=== PATIENT | female | born 1950 | race Caucasian/White ===

== ENCOUNTER → 2018-03-15 | Outpatient (CLI) | payer MEDICARE, OTHER ==
[~2018-03-15] MED LIST: ACET325; ACET500; ACET500 PO; CALCAVITD PO; Citrucel500 MG PO; DULO30 PO; FLUV80CR PO; HYDACE5 PO; HYDCHL25 PO; HYDR1TAB94; HYDR1TAB94 PO; IBUP200; LEVFLO500 PO; LISI5 PO; LUTEIN6 MG; METO25ER PO; METRIBP; OMEG1CAP30 PO; OMEGA RED PO; OMEP20ER; PHENA200 PO; RXPHEN200 PO; RXPROM25 PO; TRAM50 PO
[2018-03-15 14:36] LABS: Protein, Urine Quantitative 8.4 mg/dL (0.0-11.9)
[2018-03-15 14:41] LABS: Calcium, Urine <5.0 mg/dL (2.0-17.5); Calcium, Urine Calculation Unable to Calculate mg/24hrs (42.0-353.0)
[2018-03-15 14:42] LABS: Microalbumin, Urine Quant. <5.000 mg/L (0.000-20.000); Sodium, Urine 58 mmol/L (20-110)
== END | disposition home or self-care (01) ==
LOC: LAB EV 07:00
PROVIDERS: Internal Medicine Nephrology
DX: N18.3 Chronic kidney disease, stage 3 (moderate) (principal); D63.1 Anemia in chronic kidney disease; N25.81 Secondary hyperparathyroidism of renal origin; E55.9 Vitamin D deficiency, unspecified; E78.00 Pure hypercholesterolemia, unspecified
CPT/HCPCS: 81050; 82043; 82340; 82570; 84156; 84300

== ENCOUNTER → 2019-04-23 | Outpatient (CLI) | payer MEDICARE, OTHER | END | disposition home or self-care (01) | LOC: LAB EV 08:16 → LAB SHORT 08:16 | DX: M79.671 Pain in right foot (principal) | CPT/HCPCS: 84550 ==

== ENCOUNTER 2020-07-07 07:57 | Day surgery (SDC) | payer MEDICARE, OTHER ==
[~2020-07-07] VITALS: Ht 157.5 cm; Wt 96.8 kg
[~2020-07-07 07:57] MED LIST changes: +Prinivil10 MG PO
--- NOTE | 2020-07-07 09:04 | NUR ---
07/07/20 0904 [facility] 0850- DR VIEIRA PERFORMED TIME OUT PRIOR TO INTERSCALENE BLOCK. PT TOLERATED PROCEDURE WELL AND O2 SATS REMAINED STABLE
--- NOTE | 2020-07-07 09:43 | NUR ---
07/07/20 0943 Anderson Correia 1MG EPINEPHRINE ADDED TO FIRST 3 BAGS OF 3000ML LACTATED RINGER'S SOLUTION FOR A TOTAL OF 3MG EPI PER DR AVILA'S ORDERS.
--- NOTE | 2020-07-07 12:31 | NUR ---
07/07/20 1231 TIMOTHY VALLE PT TO STEP DOWN VIA BED. SBA TO RECLINER. PT TOLERATING SIPS OF WATER. VSS HOWEVER, O2 SATS OCCASIONALLY DROP TO 89-91%. BLOW BY O2 VIA NON-REBREATHER TO MAINTAIN O2 SATS 92% AND HIGHER. BP HYPOTENSIVE BUT MAINTAINING SYSTOLIC GREATER THAN 90. PT THEN TRENDED UPWARD AND WAS MAINTAINING O2 SATS 94% OR GREATER ON ROOM AIR. PT ENGAGED IN DC TEACHING AND EDUCATED ON USE OF ICENTIVE SPIROMETER. ALL QUESTIONS ASKED AND ANSWERED. PT DC VIA
== END 2020-07-07 11:44 | disposition home or self-care (01) ==
LOC: ORSCSDS 07:57
PROVIDERS: Orthopaedic Surgery
PROC: 0LQ14ZZ Repair Right Shoulder Tendon, Percutaneous Endoscopic Approach (ICD-10-PCS; principal; 2020-07-07 09:30)
PROC: 0RNJ4ZZ Release Right Shoulder Joint, Percutaneous Endoscopic Approach (ICD-10-PCS; principal; 2020-07-07 09:30)
DX: M75.121 Complete rotator cuff tear or rupture of right shoulder, not specified as traumatic (principal); M75.21 Bicipital tendinitis, right shoulder; M75.41 Impingement syndrome of right shoulder; I10 Essential (primary) hypertension; K21.9 Gastro-esophageal reflux disease without esophagitis; N18.9 Chronic kidney disease, unspecified; E66.01 Morbid (severe) obesity due to excess calories; Z68.39 Body mass index [BMI] 39.0-39.9, adult; Z79.899 Other long term (current) drug therapy
CPT/HCPCS: C1713; J0171; J0690; J1100; J2250; J2370; J2405; J2704; J2710; J3010; J7030

== ENCOUNTER → 2022-10-11 | Outpatient (CLI) | payer MEDICARE, OTHER ==
[2022-10-11 15:59] LABS: U Amphetamine Screen Not Detected; U Barbituate Screen Not Detected; U Benzodiazapine Screen Not Detected; U Methamphetamine Screen Not Detected; U Opiates Screen DETECTED
[2022-10-11 16:00] LABS: U Buprenorphine Screen Not Detected; U Cannabinoids Screen Not Detected; U Cocaine Screen Not Detected; U Methadone Screen Not Detected; U Oxycodone Screen Not Detected; U Phencyclidine Screen Not Detected; U Propoxyphene Screen Not Detected
== END | disposition home or self-care (01) ==
LOC: LAB 11:45 → LAB SHORT 11:45
PROVIDERS: Family Medicine
DX: Z51.81 Encounter for therapeutic drug level monitoring (principal); Z79.891 Long term (current) use of opiate analgesic

== ENCOUNTER → 2023-01-27 | Outpatient (CLI) | payer MEDICARE, OTHER | LOC: LAB SHORT 12:50 → LAB 12:50 | DX: R30.0 Dysuria (principal) | CPT/HCPCS: 87086 ==

== ENCOUNTER → 2023-02-14 | Outpatient (CLI) | payer MEDICARE, OTHER | END | disposition home or self-care (01) | LOC: LAB 15:30 → LAB SHORT 15:30 | DX: R82.90 Unspecified abnormal findings in urine (principal) | CPT/HCPCS: 87086 ==

== ENCOUNTER → 2023-05-18 | Outpatient (CLI) | payer MEDICARE, OTHER ==
[2023-05-18 16:46] LABS: U Amphetamine Screen Not Detected; U Barbituate Screen Not Detected; U Benzodiazapine Screen Not Detected; U Buprenorphine Screen Not Detected; U Cannabinoids Screen Not Detected; U Cocaine Screen Not Detected; U Methadone Screen Not Detected; U Methamphetamine Screen Not Detected; U Opiates Screen DETECTED; U Oxycodone Screen Not Detected; U Phencyclidine Screen Not Detected
== END ==
LOC: LAB 15:27 → LAB SHORT 15:27
PROVIDERS: Family Medicine
DX: Z79.891 Long term (current) use of opiate analgesic (principal)

== ENCOUNTER → 2023-11-23 | Outpatient (CLI) | payer MEDICARE, OTHER ==
[2023-11-24 19:18] LABS: U Amphetamine Screen Not Detected; U Barbituate Screen Not Detected; U Benzodiazapine Screen Not Detected; U Buprenorphine Screen Not Detected; U Cannabinoids Screen Not Detected; U Cocaine Screen Not Detected; U Methadone Screen Not Detected; U Methamphetamine Screen Not Detected; U Opiates Screen DETECTED; U Oxycodone Screen Not Detected; U Phencyclidine Screen Not Detected
== END ==
LOC: LAB SHORT 16:45 → LAB 16:45
PROVIDERS: Family Medicine
DX: Z51.81 Encounter for therapeutic drug level monitoring (principal); Z79.899 Other long term (current) drug therapy

== ENCOUNTER → 2024-08-27 | Outpatient (CLI) | payer MEDICARE, OTHER ==
[2024-08-27 16:41] LABS: U Amphetamine Screen Not Detected; U Barbituate Screen Not Detected; U Benzodiazapine Screen Not Detected; U Buprenorphine Screen Not Detected; U Cannabinoids Screen Not Detected; U Cocaine Screen Not Detected; U Methadone Screen Not Detected; U Methamphetamine Screen Not Detected; U Opiates Screen DETECTED; U Oxycodone Screen Not Detected; U Phencyclidine Screen Not Detected
== END ==
LOC: LAB 11:42 → LAB SHORT 11:42
PROVIDERS: Family Medicine
DX: Z51.81 Encounter for therapeutic drug level monitoring (principal); Z79.899 Other long term (current) drug therapy

== ENCOUNTER → 2025-03-18 | Outpatient (CLI) | payer MEDICARE, OTHER ==
[2025-03-18 17:34] LABS: U Amphetamine Screen Not Detected; U Barbituate Screen Not Detected; U Benzodiazapine Screen Not Detected; U Buprenorphine Screen Not Detected; U Cannabinoids Screen Not Detected; U Cocaine Screen Not Detected; U Methadone Screen Not Detected; U Methamphetamine Screen Not Detected; U Opiates Screen DETECTED; U Oxycodone Screen Not Detected; U Phencyclidine Screen Not Detected
== END | disposition home or self-care (01) ==
LOC: LAB SHORT 15:13 → LAB 15:13
PROVIDERS: Family Medicine
DX: Z13.39 Encounter for screening examination for other mental health and behavioral disorders (principal); R82.5 Elevated urine levels of drugs, medicaments and biological substances; Z79.899 Other long term (current) drug therapy
CPT/HCPCS: 87086

== ENCOUNTER → 2025-06-17 | Outpatient (CLI) | payer MEDICARE, OTHER | END | disposition home or self-care (01) | LOC: LAB 11:50 → LAB SHORT 11:50 | DX: N39.0 Urinary tract infection, site not specified (principal) | CPT/HCPCS: 87086 ==